=== PATIENT | female | born 1970 | race Caucasian/White ===

== ENCOUNTER → 2019-11-16 | Outpatient (CLI) | payer BC ==
[~2019-11-16] MED LIST: CYCL10 PO; DOCU100 PO; HYDACE5 PO; IBUP600 PO; IBUP800 PO; OXYACE5T PO
== END | disposition home or self-care (01) ==
LOC: LAB SHORT 14:49 → PLD 14:49
DX: B35.1 Tinea unguium (principal)
CPT/HCPCS: 88305; 88312

== ENCOUNTER → 2022-01-09 | Outpatient (CLI) | payer BC | END | disposition home or self-care (01) | DX: R10.84 Generalized abdominal pain (principal) ==

== ENCOUNTER 2022-06-14 12:52 | Day surgery (SDC) | payer BC ==
[~2022-06-14] VITALS: Ht 175.3 cm; Wt 109.2 kg
[2022-06-14 15:03] VITALS: BP 112/77
== END 2022-06-14 15:02 | disposition home or self-care (01) ==
LOC: ORSCSDS 12:52
PROVIDERS: Internal Medicine Gastroenterology
PROC: 0DBP8ZX Excision of Rectum, Via Natural or Artificial Opening Endoscopic, Diagnostic (ICD-10-PCS; principal; 2022-06-14 14:15)
DX: Z12.11 Encounter for screening for malignant neoplasm of colon (principal); K63.5 Polyp of colon; K64.4 Residual hemorrhoidal skin tags; K57.30 Diverticulosis of large intestine without perforation or abscess without bleeding; I10 Essential (primary) hypertension; Z87.891 Personal history of nicotine dependence
CPT/HCPCS: 88305; J2704; J7120

== ENCOUNTER 2023-12-30 08:27 | Day surgery (SDC) | payer BC ==
[~2023-12-30] VITALS: Ht 172.7 cm; Wt 116.4 kg
[~2023-12-30 08:27] MED LIST changes: +Lidocaine 2%-Epineph 1:100000 20 ML MDV ONE; +Lidocaine HCl 2% 10 ML SDA ONE; +NS 500 ML IV ONE
[2023-12-30] MEDS ORDERED: FLUTICASONE-SA1 EAC9 IH (09:25)
[2023-12-30] MEDS ORDERED: NS 500 ML IV ONE (09:42)
[2023-12-30] MEDS ORDERED: propofoL 20 ML IV ONE ×2 (10:27→11:01)
--- NOTE | 2023-12-30 10:39 | NUR ---
12/30/23 1039 Justin Hernandez, BLOCK TIMEOUT 1035 BLOCK STARTED LEFT WRIST AT 1035. 9ML INJECTED. BLOCK STARTED RIGHT WRIST AT 1036. 9ML INJECTED. BLOCK FINISHED 1037.
--- NOTE | 2023-12-30 11:15 | NUR ---
12/30/23 1115 Olive Faust LEFT WRIST, HAND, FOREARM PREPED BY [facility]
[2023-12-30 11:50] VITALS: BP 137/57
== END 2023-12-30 11:44 | disposition home or self-care (01) ==
LOC: ORSCSDS 08:27
PROVIDERS: Orthopaedic Surgery
PROC: 01N54ZZ Release Median Nerve, Percutaneous Endoscopic Approach (ICD-10-PCS; principal; 2023-12-30 10:00)
DX: G56.03 Carpal tunnel syndrome, bilateral upper limbs (principal); Z87.891 Personal history of nicotine dependence; Z79.899 Other long term (current) drug therapy
CPT/HCPCS: J2003; J2704; J7040

== ENCOUNTER 2024-09-07 08:59 | Day surgery (SDC) | payer BC ==
[~2024-09-07] VITALS: Ht 172.7 cm; Wt 114.4 kg
[~2024-09-07 08:59] MED LIST changes: +FLUTICASONE-SA1 EAC9 IH; -Lidocaine 2%-Epineph 1:100000 20 ML MDV ONE; -Lidocaine HCl 2% 10 ML SDA ONE
[2024-09-07] MEDS ORDERED: CeFAZolin Sodium 2,000 MG VIAL ONE (09:06)
[2024-09-07] MEDS ORDERED: WIXELA 250-501 EAC1 INH (09:15)
[2024-09-07] MEDS ORDERED: NS 500 ML IV ONE (09:23)
[2024-09-07] MEDS ORDERED: Lidocaine HCl 2% 10 ML SDA ONE ×2 (09:39→10:08)
[2024-09-07] MEDS ORDERED: FentaNYL Citrate 50 MCG/ML 2 ML Injection ONE (09:47)
[2024-09-07] MEDS ORDERED: Midazolam HCl 1MG / ML 2ML Vial ONE (09:47)
[2024-09-07] MEDS ORDERED: Ondansetron HCl 2 MG / ML 2ML Vial ONE (09:52)
[2024-09-07] MEDS ORDERED: Ketorolac Tromethamine 30mg Vial ONE (09:52)
[2024-09-07] MEDS ORDERED: Dexamethasone Sod Phos 10 MG/ML 1ML VIAL ONE (09:52)
[2024-09-07] MEDS ORDERED: Lidocaine HCl 2% 10 ML SDA INJ ONE (10:00)
--- NOTE | 2024-09-07 10:36 | NUR ---
09/07/24 1036 Ida Sampson o2 trial 1016 FOR 10 MIN, PT MAINTAINED SATS ABOVE 98%
[2024-09-07 10:37] VITALS: BP 124/93
--- NOTE | 2024-09-07 10:57 | NUR ---
09/07/[address] AT BEDSIDE DISCUSSING PROCEDURE/SURGERY
== END 2024-09-07 11:05 | disposition home or self-care (01) ==
LOC: ORSCSDS 08:59
PROVIDERS: Orthopaedic Surgery
PROC: 01N40ZZ Release Ulnar Nerve, Open Approach (ICD-10-PCS; principal; 2024-09-07 13:00)
DX: G56.22 Lesion of ulnar nerve, left upper limb (principal); J45.909 Unspecified asthma, uncomplicated; E11.9 Type 2 diabetes mellitus without complications; Z79.899 Other long term (current) drug therapy; Z87.891 Personal history of nicotine dependence; Z68.38 Body mass index [BMI] 38.0-38.9, adult
CPT/HCPCS: J0690; J1100; J1885; J2003; J2250; J2405; J2704; J3010; J7040

== ENCOUNTER 2025-01-25 10:32 | Day surgery (SDC) | payer BC ==
[~2025-01-25] VITALS: Ht 175.3 cm; Wt 118.5 kg
[~2025-01-25 10:32] MED LIST changes: +WIXELA 250-501 EAC1 INH
[2025-01-25] MEDS ORDERED: CeFAZolin Sodium 2,000 MG VIAL ONE (11:07)
[2025-01-25] MEDS ORDERED: NS 500 ML IV ONE (11:14)
--- NOTE | 2025-01-25 11:51 | NUR ---
01/25/25 1151 ALYCIA LOVETT LOCAL INJ RIGHT THUMB 4 CC LIDOW/ EPI AND BICAB COCTAIL PER ORDERS
[2025-01-25 13:04] VITALS: BP 132/77
== END 2025-01-25 13:06 | disposition home or self-care (01) ==
LOC: ORSCSDS 10:32
PROVIDERS: Orthopaedic Surgery
PROC: 0LN70ZZ Release Right Hand Tendon, Open Approach (ICD-10-PCS; principal; 2025-01-25 12:00)
DX: M65.311 Trigger thumb, right thumb (principal); E66.9 Obesity, unspecified; Z68.38 Body mass index [BMI] 38.0-38.9, adult; Z87.891 Personal history of nicotine dependence
CPT/HCPCS: J0690; J2704; J7040